=== PATIENT | female | born 1995 | race Caucasian/White ===

== ENCOUNTER 2021-03-22 17:51 | Emergency (ER) | payer OTHER ==
[2021-03-22] MEDS ORDERED: CEFUROXIME500 MG PO (20:57)
[2021-03-22] MEDS ORDERED: PYRIDIUM200 MG PO (20:57)
== END 2021-03-22 21:01 | disposition home or self-care (01) ==
LOC: ER1 17:51
DX: O24.912 Unspecified diabetes mellitus in pregnancy, second trimester (principal); O23.42 Unspecified infection of urinary tract in pregnancy, second trimester; O99.332 Smoking (tobacco) complicating pregnancy, second trimester; F17.200 Nicotine dependence, unspecified, uncomplicated; Z79.84 Long term (current) use of oral hypoglycemic drugs; Z3A.18 18 weeks gestation of pregnancy
CPT/HCPCS: 81001; 82962; 87077; 87086; 87186; 99284

== ENCOUNTER 2021-03-29 22:37 | Inpatient (IN) | payer OTHER ==
[~2021-03-29] VITALS: Ht 160 cm; Wt 71.5 kg
[~2021-03-29 22:37] MED LIST: CEFUROXIME500 MG PO; PYRIDIUM200 MG PO
[2021-03-29 23:20] LABS: HEMOGLOBIN 11.4 gm/dl (12.3-15.3); RED BLOOD COUNT 3.69 M/UL (4.00-5.10); WHITE BLOOD COUNT 10.9 K/UL (4.5-11.0)
[2021-03-29 23:42] LABS: BUN/CREATININE RATIO 7 (0-10)
[2021-03-30 07:55] LABS: WHITE BLOOD COUNT 9.3 K/UL (4.5-11.0)
[2021-03-30 08:01] LABS: HEMOGLOBIN 9.2 gm/dl (12.3-15.3); RED BLOOD COUNT 3.11 M/UL (4.00-5.10)
[2021-03-30 08:18] LABS: BUN/CREATININE RATIO 7 (0-10)
[2021-03-30] MEDS ORDERED: PRENATAL VITAM1 EAC5 PO (10:06)
--- NOTE | 2021-03-31 11:09 | NUR ---
DISCONNECTING PATIENT IV, I EXPLAINED THE RISK FOR INFECTION AND LOSING IV PATENCY, THEY SAID THEY WERE LEAVING THE FLOOR TO [facility], I REMINDED HER THE POLICY WAS NOT TO LEAVE THE UNIT AND THE SAID THEY WERE GOING OUT TO [facility].
[2021-03-31] MEDS ORDERED: BACTRIM DS TAB1 EACH PO (12:43)
== END 2021-03-31 16:13 | disposition home or self-care (01) | DRG 833 ==
LOC: ER1 22:37 → CDU 03-30 01:53 → M/S 03-30 04:07
PROVIDERS: Physician Assistant; ADMIT Obstetrics & Gynecology
DX: O23.02 Infections of kidney in pregnancy, second trimester (principal); Z3A.19 19 weeks gestation of pregnancy; Z20.822 Contact with and (suspected) exposure to COVID-19; B96.20 Unspecified Escherichia coli [E. coli] as the cause of diseases classified elsewhere; O99.282 Endocrine, nutritional and metabolic diseases complicating pregnancy, second trimester; E87.6 Hypokalemia
CPT/HCPCS: 36415; 80048; 80053; 81001; 83605; 83690; 85025; 85027; 87040; 87077; 87086; 87186; 99284; J0696; J2765; J7030; U0002

== ENCOUNTER 2021-08-11 05:29 | Inpatient (IN) | payer OTHER ==
[~2021-08-11] VITALS: Ht 160 cm; Wt 79.8 kg
[~2021-08-11 05:29] MED LIST changes: +BACTRIM DS TAB1 EACH PO; +PRENATAL VITAM1 EAC5 PO
[2021-08-11 06:43] LABS: HEMOGLOBIN 11.4 gm/dl (12.3-15.3); RED BLOOD COUNT 3.79 M/UL (4.00-5.10); WHITE BLOOD COUNT 7.8 K/UL (4.5-11.0)
[2021-08-11] MEDS ORDERED: COLACE 100MG C100 MG PO (07:59)
[2021-08-11] MEDS ORDERED: IBUPROFEN600 MG PO (07:59)
[2021-08-11] MEDS ORDERED: HYDROCODON-ACE1 EAC6 PO (07:59)
[2021-08-12 06:15] LABS: HEMOGLOBIN 9.4 gm/dl (12.3-15.3)
== END 2021-08-13 11:24 | disposition home or self-care (01) | DRG 788 ==
LOC: OB 05:29
PROVIDERS: ADMIT Obstetrics & Gynecology
PROC: 4A1HXCZ Monitoring of Products of Conception, Cardiac Rate, External Approach (ICD-10-PCS; 2021-08-11)
PROC: 10D00Z1 Extraction of Products of Conception, Low, Open Approach (ICD-10-PCS; principal; 2021-08-11 07:30)
DX: O13.4 Gestational [pregnancy-induced] hypertension without significant proteinuria, complicating childbirth (principal); O99.334 Smoking (tobacco) complicating childbirth; Z3A.38 38 weeks gestation of pregnancy; Z20.822 Contact with and (suspected) exposure to COVID-19; Z37.0 Single live birth; F17.210 Nicotine dependence, cigarettes, uncomplicated; Z83.3 Family history of diabetes mellitus; O32.2XX0 Maternal care for transverse and oblique lie, not applicable or unspecified
CPT/HCPCS: 36415; 81001; 82800; 85014; 85018; 85025; 90707; C9113; J0690; J1885; J2274; J2370; J2405; J2590; J3010; J7120; U0002